=== PATIENT | female | born 1940 | race Caucasian/White ===

== ENCOUNTER → 2017-07-26 | Outpatient (CLI) | payer MEDICARE | LOC: MAMMO 14:32 | PROVIDERS: ATTEND Internal Medicine | DX: Z12.31 Encounter for screening mammogram for malignant neoplasm of breast (principal) | CPT/HCPCS: 77067 ==

== ENCOUNTER → 2017-12-01 | Outpatient (CLI) | payer MEDICARE ==
--- NOTE | 2017-12-01 13:13 | Diagnostic Imaging Report ---
EXAMINATION: PA and lateral views of the chest. COMPARISON: None CLINICAL HISTORY: Shortness of breath DISCUSSION: Lungs are well-inflated. Increased attenuation over the lung bases due to breast implants. No focal airspace consolidation, pleural effusion, or pneumothorax. Calcified granuloma superior segment right lower lobe. Tortuous thoracic aorta with atherosclerotic calcification. Otherwise normal cardiomediastinal contour. No acute osseous abnormality. Surgical clips project over the upper abdomen likely related to prior cholecystectomy. IMPRESSION: No acute cardiopulmonary abnormalities. Signed by: Dr. Constantine Lugo M.D. on 12/01/2017 1:09 PM
== END ==
LOC: RAD 12:28
DX: R06.02 Shortness of breath (principal)
CPT/HCPCS: 71046

== ENCOUNTER → 2018-10-19 | Outpatient (CLI) | payer MEDICARE ==
--- NOTE | 2018-10-31 09:29 | Diagnostic Imaging Report ---
#[id number] - [id number] #BILATERAL DIGITAL SCREENING MAMMOGRAM WITH CAD: 10/19/2018 CLINICAL: Routine screening. Comparison is made to exams dated: 07/26/2017 mammogram and 05/28/2016 mammogram - [facility]. Current study contains 8 films. The tissue of both breasts is heterogeneously dense. This may lower the sensitivity of mammography. Current study was also evaluated with a Computer Aided Detection (CAD) system. There are benign vascular calcifications in both breasts. Bilateral breast implants with irregular contour is unchanged and likely secondary to leakage. No significant masses, calcifications, or other findings are seen in either breast. IMPRESSION: BENIGN There is no mammographic evidence of malignancy. A 1 year screening mammogram is recommended. The patient will be notified by letter of the results. LUCIE MO M.D. ct/penrad:10/27/2018 10:51:26 Carton Repairer: Amanda CHADWICK)(Reena), [facility] letter sent: Normal Exam Mammogram BI-RADS: 2 Benign
== END ==
LOC: MAMMO 12:14
PROVIDERS: ATTEND Internal Medicine
DX: Z12.31 Encounter for screening mammogram for malignant neoplasm of breast (principal)
CPT/HCPCS: 77067

== ENCOUNTER → 2021-05-21 | Outpatient (CLI) | payer OTHER | LOC: MAMMO 13:40 | PROVIDERS: ATTEND Internal Medicine | DX: Z12.31 Encounter for screening mammogram for malignant neoplasm of breast (principal) | CPT/HCPCS: 77067 ==

== ENCOUNTER → 2021-06-30 | Day surgery (SDC) | payer MEDICARE, OTHER ==
[~2021-06-30] MED LIST: ALENDRONATE SOD70 MG PO; ALLEGRA-D 12 H1 EACH PO; ALLEGRA-D 24 H1 EACH PO; CALCIUM CARBON500 MG PO; CIPRO500 MG PO; DIGOXIN125 MCG PO; ELIQUIS5 MG PO; ESTRADIOL1 MG PO; FENTANYL CITRATE/PF 100MCG/2 ML INJ ONE; FOLIC ACID0.4 MG PO; LEVOTHYROXINE88 MCG PO; METOPROLOL SUCC50 MG PO; MIDAZOLAM HCL 2 MG/2 ML VIAL ONE; MYRBETRIQ50 MG PO; OR PHACO EYE KIT ONE; PREOP PHACO EYE KIT ONE; PROTONIX20 MG PO; ZYRTEC10 M3 PO
[2021-06-30 14:00] VITALS: BP 140/62
== END | disposition home or self-care (01) ==
LOC: OR 10:18
PROVIDERS: ATTEND Ophthalmology
DX: H25.11 Age-related nuclear cataract, right eye (principal); C83.00 Small cell B-cell lymphoma, unspecified site; I48.91 Unspecified atrial fibrillation; I49.1 Atrial premature depolarization; I11.9 Hypertensive heart disease without heart failure; I25.119 Atherosclerotic heart disease of native coronary artery with unspecified angina pectoris; E03.9 Hypothyroidism, unspecified; K28.9 Gastrojejunal ulcer, unspecified as acute or chronic, without hemorrhage or perforation; K44.9 Diaphragmatic hernia without obstruction or gangrene; K21.9 Gastro-esophageal reflux disease without esophagitis; N39.0 Urinary tract infection, site not specified; I05.9 Rheumatic mitral valve disease, unspecified; E78.2 Mixed hyperlipidemia; J41.0 Simple chronic bronchitis; M19.011 Primary osteoarthritis, right shoulder; G45.1 Carotid artery syndrome (hemispheric); A31.0 Pulmonary mycobacterial infection; M81.0 Age-related osteoporosis without current pathological fracture; D50.9 Iron deficiency anemia, unspecified; F51.01 Primary insomnia; M17.10 Unilateral primary osteoarthritis, unspecified knee; M16.11 Unilateral primary osteoarthritis, right hip; M51.36 Other intervertebral disc degeneration, lumbar region; N95.1 Menopausal and female climacteric states; M48.07 Spinal stenosis, lumbosacral region; M79.10 Myalgia, unspecified site; M79.2 Neuralgia and neuritis, unspecified; J30.1 Allergic rhinitis due to pollen; K64.9 Unspecified hemorrhoids; Z01.812 Encounter for preprocedural laboratory examination; Z20.822 Contact with and (suspected) exposure to COVID-19; Z79.02 Long term (current) use of antithrombotics/antiplatelets; Z79.899 Other long term (current) drug therapy; Z86.73 Personal history of transient ischemic attack (TIA), and cerebral infarction without residual deficits
CPT/HCPCS: 66984; 93005; J2250; J3010; U0002; V2788

== ENCOUNTER → 2021-07-14 | Day surgery (SDC) | payer MEDICARE, OTHER ==
[2021-07-14 13:21] VITALS: BP 135/65
== END | disposition home or self-care (01) ==
LOC: OR 09:30
PROVIDERS: ATTEND Ophthalmology
DX: H25.12 Age-related nuclear cataract, left eye (principal); C85.90 Non-Hodgkin lymphoma, unspecified, unspecified site; I10 Essential (primary) hypertension; I49.9 Cardiac arrhythmia, unspecified; K28.4 Chronic or unspecified gastrojejunal ulcer with hemorrhage; K44.9 Diaphragmatic hernia without obstruction or gangrene; K21.9 Gastro-esophageal reflux disease without esophagitis; Z01.812 Encounter for preprocedural laboratory examination; Z20.822 Contact with and (suspected) exposure to COVID-19; Z79.02 Long term (current) use of antithrombotics/antiplatelets; Z79.899 Other long term (current) drug therapy
CPT/HCPCS: J2250; J3010; U0002

== ENCOUNTER → 2021-12-23 | Outpatient (CLI) | payer OTHER ==
[~2021-12-23] MED LIST changes: -FENTANYL CITRATE/PF 100MCG/2 ML INJ ONE; -MIDAZOLAM HCL 2 MG/2 ML VIAL ONE; -OR PHACO EYE KIT ONE; -PREOP PHACO EYE KIT ONE
== END ==
LOC: RAD 14:38
PROVIDERS: ATTEND Internal Medicine
DX: M17.11 Unilateral primary osteoarthritis, right knee (principal)

== ENCOUNTER → 2022-06-17 | Outpatient (CLI) | payer OTHER | LOC: MAMMO 12:16 | PROVIDERS: ATTEND Internal Medicine | DX: Z12.31 Encounter for screening mammogram for malignant neoplasm of breast (principal) | CPT/HCPCS: 77067 ==